=== PATIENT | female | born 1970 | race Caucasian/White ===

== ENCOUNTER 2017-02-14 09:38 | Day surgery (SDC) | payer OTHER ==
[2017-02-09 15:06] VITALS: BMI 28.6
[2017-02-14] MEDS ORDERED: IBUPROFEN 800 MG/8 ML IJ IVPB PRN (11:17)
[2017-02-14] MEDS ORDERED: ACETAMINOPHEN 325 MG TABLET (FP) PO PRN (11:17)
--- NOTE | 2017-02-14 11:17 | HP ---
History & Physical Update - History History: No Change - Physical Physical: No Change - Assessment Assessment: No Change - Plan Plan: No Change (Cervical Dysplasia and vulvar lesion - for LEEP and excision of vulvar lesion)
[2017-02-14] MEDS ORDERED: LACTATED RINGERS SOLUTION 1,000 ML IV SCH (11:30)
[2017-02-14] MEDS ORDERED: PROPOFOL 20 ML ONE (11:57)
[2017-02-14] MEDS ORDERED: MIDAZOLAM HCL 2 MG/2 ML SINGLE DOSE VIAL ONE (11:57)
[2017-02-14] MEDS ORDERED: ONDANSETRON 4 MG/2 ML VIAL IVPUSH PRN (12:43)
[2017-02-14] MEDS ORDERED: PROMETHAZINE HCL 25 MG/1 ML VIAL IVPUSH PRN (12:43)
[2017-02-14] MEDS ORDERED: oxyCODONE HCL 5 MG TABLET PO PRN (12:43)
--- NOTE | 2017-02-14 12:43 | OP ---
Operative Note - Note: Operative Date: 02/14/17 (dictation number [id number]) Pre-Operative Diagnosis: cervical dysplasia, vulvar lesions Operation: LEEP cone biopsy, excision of vulvar lesions Findings: 3 lesions on labia majora approx 2mm in size otherwise normal female genital anatomy Post-Operative Diagnosis: Same as Pre-op Surgeon: Argenis Morris Anesthesiologist/SLATE SPLITTER: Rowan Glez MD Anesthesia: General (with LMA) Estimated Blood Loss (mls): 2 Operative Report Dictated: Yes
[2017-02-14 14:06] VITALS: TEMP 98
[2017-02-14 14:26] VITALS: BP 115/48; PULSE 60
--- NOTE | 2017-02-15 05:27 | OP ---
DATE OF OPERATION: 02/14/2017 PREOPERATIVE DIAGNOSIS: Cervical dysplasia and vulvar lesions. POSTOPERATIVE DIAGNOSIS: Cervical dysplasia and vulvar lesions. PROCEDURE: Loop electrosurgical excision procedure cone biopsy and excision of vulvar lesions. SURGEON: Argenis Morris MD ANESTHESIA: LMA by Rowan Glez MD. SPECIMENS REMOVED: Included cervical biopsy as well as vulvar lesions x3. ESTIMATED BLOOD LOSS: 2 mL. COMPLICATIONS: None. DISPOSITION: Stable to PACU. Sponge, needle, and instrument counts reported to be correct. BRIEF HISTORY AND PROCEDURE: Patient is a 46-year-old female who had been seen in the office with an abnormal Pap test, and on colposcopic biopsy was noted to have high grade cervical dysplasia on her endocervical curettage. The patient was admitted to [facility] on February 14 for the scheduled LEEP cone biopsy procedure. Patient also had complaints of three small vulvar lesions on her left labia majora, which she decided she would like to have removed, as well. Consents for the procedure were signed upon admission on February 14, 2017. The patient was then taken back to the operating room and placed in the dorsal lithotomy position. She was given anesthesia LMA by Dr. Glez without difficulty. First a plastic speculum was placed inside the vagina. The cervix was easily visualized, and using the LEEP loop, LEEP cone biopsy was removed in a single pass into portions of the specimen, which were stitched together at the 12 o'clock position, and then sent to Pathology for permanent evaluation. The cervical bed was then cauterized with the rollerball cautery to achieve hemostasis and Monsels solution was applied. After hemostasis was achieved, attention was turned to the vulva, where three small approximately 2-mm lesions were appreciated, elevated, and were inspected with a 15 blade, and the lesions were sent to Pathology for permanent evaluation, and the defects were reapproximated using interrupted sutures using 4-0 Biosyn. A Band-Aid was applied to the vulvar site. Again, an inspection of the cervical surgical site was noted to be hemostatic. The patient was then awoken from anesthesia. Sponge, needle, and instrument counts were reported to be correct. Instruments were removed from the surgical site. She was awoken from anesthesia in stable condition, recovering in PACU at this time. ARGENIS MORRIS DO /[id number]
--- NOTE | 2017-02-16 11:40 | PATH ---
Surgical Pathology Report Patient Name: BILL INFANTE [facility]. Rec. #: [id number] /Age/Gender: 1970 (Age: 46) / F Account: [id number] Location: [facility] SURGICAL Taken: 02/14/2017 Received: 02/14/2017 Reported: 02/16/2017 Physicians: Argenis Morris M.D. Specimen(s) Received A: CERVICAL LEEP SUTURE AT 12:00 B: VULVAR LESIONS Clinical History HPV/cervical dysplasia Final Diagnosis A. CERVIX, LEEP CONE BIOPSY: CERVICAL SQUAMOUS AND ENDOCERVICAL MUCOSA WITH HIGH GRADE SQUAMOUS INTRAEPITHELIAL LESION (CERVICAL INTRAEPITHELIAL NEOPLASIA 3/GLORIA 3) WITH FOCAL GLANDULAR INVOLVEMENT, PRESENT IN 12-3:00, 3-6:00, AND 9-12:00 QUADRANTS. SURGICAL RESECTION MARGINS: ECTOCERVICAL MARGIN IS NEGATIVE FOR DYSPLASIA; ASSESSMENT OF THE ENDOCERVICAL MARGIN IS LIMITED BY PARTIAL DETACHMENT OF THE DYSPLASTIC EPITHELIUM, FAVOR NEGATIVE MARGIN. TRANSFORMATION ZONE: PRESENT. B. VULVAR LESIONS: VERRUCA VULGARIS (x3). Electronically Signed Martir Flores M.D. Gross Description A. Received in formalin labeled "cervical LEEP cone biopsy" is a 1.5 cm in diameter annular portion of soft tissue, consistent with a cervical LEEP cone biopsy. There is a suture marking the 12:00 aspect of the specimen, per the surgeon. The specimen is surfaced by a fernández-pink, shiny and glistening mucosa. The specimen is inked blue, serially sectioned and entirely and sequentially submitted in 4 cassettes as follows: 1-12:00 to 3:00; 2-3:00 to 6:00; 3-6:00 to 9:00; 4-9:00 to 12:00. B. Received in formalin labeled "vulvar lesions" are 3 fernández soft tissue fragments averaging 0.3 cm in greatest dimension. The specimens are submitted in toto in one cassette. 02/14/201702/14/2017
== END 2017-02-14 14:33 | disposition home or self-care (01) ==
LOC: JASU-SURG 09:38
PROVIDERS: ATTEND Obstetrics & Gynecology
PROC: 0UBM0ZZ Excision of Vulva, Open Approach (ICD-10-PCS; 2017-02-14)
PROC: 0UBC7ZX Excision of Cervix, Via Natural or Artificial Opening, Diagnostic (ICD-10-PCS; principal; 2017-02-14 11:00)
DX: N87.9 Dysplasia of cervix uteri, unspecified (principal); N90.89 Other specified noninflammatory disorders of vulva and perineum; B07.8 Other viral warts; D28.0 Benign neoplasm of vulva
CPT/HCPCS: 84703; 88305-TC; 88307-TC; 94760